=== PATIENT | female | born 1940 | race Caucasian/White ===

== ENCOUNTER 2018-08-19 06:30 | Day surgery (SDC) ==
[2018-08-19 07:18] VITALS: TEMP 97.4
[2018-08-19] MEDS ORDERED: LIDOCAINE 1% 20 ML MDV ID STA (07:19)
[2018-08-19] MEDS ORDERED: VERSED ONE (08:35)
[2018-08-19] MEDS ORDERED: DIPRIVAN 20 ML VIAL IVP ONE (08:35)
--- NOTE | 2018-08-21 07:27 | OP ---
INDICATIONS FOR PROCEDURE: 77-year-old female presents for first ever colonoscopy exam. Her dad had colon cancer in his 80's. MEDICATIONS: SEE ANESTHESIA NOTES. PROCEDURE: COLONOSCOPY, SNARE POLYPECTOMY. REPORT: The risks, benefits, alternatives and limitations were discussed in detail with the patient. Informed consent was obtained. After adequate sedation was achieved, digital rectal exam revealed good tone, no masses. The colonoscope was introduced into the rectum and advanced under direct visual guidance to the cecum. The cecum was identified by the appendiceal orifice and IC valve. I then slowly withdrew the scope in a circumferential manner examining the mucosa quite carefully. I looked on the proximal and distal side of folds and flexures as best as possible. I was able to retroflex the scope in the right colon as well as the left colon. The colonic mucosa was unremarkable all the way down to the rectum. Here in the rectum there is a 1 cm approximately semi-raised polyp. I removed this by snare technique. It was retrieved. On retroflex view of the anal canal there was non engorged hemorrhoidal veins. The prep was good. The withdrawal time was 10 minutes and 27 seconds. No other abnormalities were noted. The patient tolerated the procedure well with stable vital signs and pulse oximetry throughout. IMPRESSION: 1. RECTAL POLYP REMOVED. 2. OTHERWISE RELATIVELY UNREMARKABLE COLONOSCOPY. RECOMMENDATIONS: 1. High fiber diet. 2. Office visit as needed. 3. Await polyp pathology. If everything is benign as expected, I recommend repeat colonoscopy examination again in 5 years if she is clinically well, sooner if she is having any signs or symptoms to indicate otherwise. CC: DR. JENNIFER OLMOS
[2018-08-21 14:44] VITALS: BP 121/78
== END 2018-08-19 09:55 | disposition home or self-care (01) ==
LOC: SURG 06:30
PROVIDERS: ATTEND Internal Medicine Gastroenterology
DX: Z12.11 Encounter for screening for malignant neoplasm of colon (principal); Z80.0 Family history of malignant neoplasm of digestive organs; D37.4 Neoplasm of uncertain behavior of colon; D12.8 Benign neoplasm of rectum